=== PATIENT | male | born 2000 | race Caucasian/White ===

== ENCOUNTER 2021-10-22 03:32 | Emergency (ER) | payer BC ==
[~2021-10-22] VITALS: Ht 172.7 cm; Wt 77.1 kg
[2021-10-22 03:40] VITALS: BP_SYST 113
--- NOTE | 2021-10-22 03:40 | NUR ---
ER examining patient in the triage room.
[2021-10-22 04:26] LABS: BASOPHILS % (AUTO) 0.2 % (0.0-2.0); EOSINOPHILS # (AUTO) 0.2 K/uL (0.0-0.4); HEMATOCRIT 49.8 % (36-54); HEMOGLOBIN 16.8 g/dL (14.0-18.0); LYMPHOCYTES # (AUTO) 0.3 K/uL (1.0-5.5); LYMPHOCYTES % (AUTO) 1.9 % (20.5-51.5); MEAN CORPUSCULAR HEMOGLOBIN 28 pg (27-31); MEAN CORPUSCULAR HGB CONC 34 % (32-36); MEAN CORPUSCULAR VOLUME 84 fL (79.0-98.0); MONOCYTES # (AUTO) 0.4 K/uL (0.0-1.0); MONOCYTES % (AUTO) 2.8 % (1.7-9.3); NEUTROPHILS # (AUTO) 14.5 K/uL (1.8-7.7); NEUTROPHILS % (AUTO) 94.1 % (40.0-70.0); PLATELET COUNT (AUTO) 258 K/uL (130-430); RED BLOOD CELL COUNT(AUTO) 5.97 MIL/uL (4.2-6.2); RED CELL DISTRIBUTION WIDTH 13.2 % (9.0-15.0); WHITE BLOOD COUNT (AUTO) 15.4 K/uL (4.8-10.8)
--- NOTE | 2021-10-22 04:27 | NUR ---
Patient to ER bed 3 to gown for evaluation. Side rails up. Report given to Marisol BLAIR.
--- NOTE | 2021-10-22 04:29 | NUR ---
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 ASLO C/O LEFT SIDED CHEST PAIN AFTER THROWING UP, DENIES ANY SOB. RSP EVEN AND UNLABORED, ON RA @98%. SKIN W/D/I.
[2021-10-22] MEDS: HYDROcodone/ACETAMIN 5-325 MG TAB (NORCO/ VICODIN) PO ONE (04:36)
--- NOTE | 2021-10-22 04:36 | NUR ---
MEDICATED ORDERED., MOM AT BEDSIDE. PLACED ON FRACTIONATION SUPERVISOR.
[2021-10-22 04:39] LABS: ANION GAP 11 (5-15); CHLORIDE 103 mmol/L (98-107); CREATININE 1.11 mg/dL (0.55-1.30); GLUCOSE 159 mg/dL (70-99); POTASSIUM 4.5 mmol/L (3.5-5.1); SODIUM SERUM 138 mmol/L (136-145); UREA NITROGEN, BLOOD 21 mg/dL (8-21)
[2021-10-22 04:47] LABS: ALANINE AMINOTRANSFERASE 29 U/L (12-78); ALBUMIN 4.6 g/dL (3.4-4.8); ASPARTATE AMINOTRANSFERASE 21 U/L (10-37); LIPASE 99 U/L (73-393); TOTAL BILIRUBIN 2.3 mg/dL (0.0-1.0)
[2021-10-22 04:54] LABS: GFR AFRICAN AMERICAN 107 mL/min (>90)
--- NOTE | 2021-10-22 05:16 | NUR ---
PT WITH EYES CLOSED, IN NAD. RESP EVEN AND UNLABORED. ON RA @99%. MOM AT BEDSIDE.
[2021-10-22 06:44] VITALS: BP_SYST 119
--- NOTE | 2021-10-22 06:44 | NUR ---
Patient given written and verbal discharge instructions and verbalizes understanding. ER MD discussed with patient the results and treatment provided. Patient in stable condition. ID arm band removed. Patient educated on pain management and to follow up with PMD. Pain Scale [0]. Opportunity for questions provided and answered. Medication side effect fact sheet provided.
== END 2021-10-22 06:44 | disposition home or self-care (01) ==
LOC: SED 03:32
DX: R07.89 Other chest pain (principal); R11.2 Nausea with vomiting, unspecified; R19.7 Diarrhea, unspecified; J45.909 Unspecified asthma, uncomplicated; Z20.822 Contact with and (suspected) exposure to COVID-19
CPT/HCPCS: 36415; 71045; 76700-TC; 80053; 83690; 84484; 85025; 85379; 93005; 99285